=== PATIENT | male | born 2000 | race Caucasian/White ===

== ENCOUNTER 2023-04-06 16:53 | Emergency (ER) | payer OTHER, SELFPAY ==
[2023-04-06] MEDS ORDERED: Ketorolac Tromethamine 30 MG (1 mL) VIAL ONE (18:20)
[2023-04-06] MEDS ORDERED: Lidocaine 1% w/Epinephrine 1:100K 20 ML VIAL ONE (18:20)
[2023-04-06] MEDS ORDERED: Boostrix 0.5 ML (Tdap) VIAL (>/=7 yrs of age) ONE (18:20)
[2023-04-06] MEDS ORDERED: Bacitracin 1 PK ONE (19:01)
== END 2023-04-06 19:12 | disposition home or self-care (01) ==
LOC: ERS 16:53
DX: S81.812A Laceration without foreign body, left lower leg, initial encounter (principal); F17.290 Nicotine dependence, other tobacco product, uncomplicated; Z23 Encounter for immunization; W29.0XXA Contact with powered kitchen appliance, initial encounter
CPT/HCPCS: 12002; 90471; 90715; 96372; J1885